=== PATIENT | female | born 1950 | race African-American/Black ===

== ENCOUNTER 2023-09-22 18:45 | Emergency (ER) | payer OTHER ==
[~2023-09-22] VITALS: Ht 165.1 cm; Wt 78.0 kg
[2023-09-22 19:01] VITALS: TEMP 98; O2SAT 98
[2023-09-22] MEDS ORDERED: LIDOCAINE HCL/PF 1% 10 MG/ML 5ML VIAL INFIL ONE (19:15)
[2023-09-22] MEDS ORDERED: BACITRACIN ZINC OINT UDPKT TOP ONE (19:15)
[2023-09-22 20:50] LABS: BASOPHILS % 0.7 % (0.0-2.0); EOSINOPHILS % 1.8 % (0.0-5.0); HEMATOCRIT. 37.1 % (36.0-48.0); HEMOGLOBIN. 11.9 g/dL (12.0-16.0); LYMPHOCYTES % 11.8 % (20.0-50.0); MEAN CORPUSCULAR HEMOGLOBIN 26.5 pg (28.0-32.0); MEAN CORPUSCULAR HGB CONC 32.2 g/dL (31.0-37.0); MEAN CORPUSCULAR VOLUME 82.3 fL (81.0-99.0); MEAN PLATELET VOLUME 8.6 fl (7.4-10.4); MONOCYTES % 5.8 % (2.0-8.0); NEUTROPHILS % 79.9 % (40.0-76.0); PLATELET 309 x1000/uL (130-400); RED CELL DISTRIBUTION WIDTH 13.4 % (11.6-14.6); WHITE BLOOD COUNT 9.7 x1000/uL (4.5-11.0)
[2023-09-22 20:56] LABS: CHLORIDE 105 mEq/L (98-107); POTASSIUM 4.1 mEq/L (3.5-5.1); SODIUM 137 mEq/L (136-145)
[2023-09-22 20:57] LABS: CALCIUM 10.3 mg/dL (8.7-10.4); CARBON DIOXIDE 25 mEq/L (21-32)
[2023-09-22 21:01] LABS: INR 0.9; PROTHROMBIN TIME 10.5 sec (9.6-11.0)
[2023-09-22 21:02] LABS: GLUCOSE 161 mg/dL (70-105); UREA NITROGEN BLOOD 13 mg/dL (9-23)
[2023-09-22 21:04] LABS: TROPONIN I HIGH SENSITIVITY 6 ng/L (3.0-34)
[2023-09-22] MEDS ORDERED: AMOX1TAB16 MT (22:22)
[2023-09-22] MEDS ORDERED: AMOXICILLIN/POTASSIUM CLAVULANATE 875/125MG TAB PO ONE (22:30)
[2023-09-22 22:41] VITALS: BP 129/80; PULSE 69; RESP 18
== END 2023-09-22 22:53 | disposition home or self-care (01) ==
LOC: ER 18:45 → CANBEDREQ 09-24 03:31
DX: S01.511A Laceration without foreign body of lip, initial encounter (principal); R55 Syncope and collapse; X58.XXXA Exposure to other specified factors, initial encounter; Y93.89 Activity, other specified; Y92.89 Other specified places as the place of occurrence of the external cause; Y99.8 Other external cause status
CPT/HCPCS: 99284; 70450; 80048; 85025; 85610; 84484; 36415; 70486; 12013; 93005; J3490